=== PATIENT | male | born 1935 | race Caucasian/White ===

== ENCOUNTER → 2019-10-28 | Outpatient (CLI) | payer MEDICARE | LOC: RAD 08:08 | DX: N18.3 Chronic kidney disease, stage 3 (moderate) (principal) ==

== ENCOUNTER 2023-12-20 17:21 | Emergency (ER) | payer MEDICARE ==
[~2023-12-20] VITALS: Ht 180.3 cm; Wt 75.0 kg
[2023-12-20 18:43] LABS: BASO # 0.02 K/mm3 (0.02-0.10); EOS % 6.7 % (0.0-4.0); HEMATOCRIT 38.2 % (42.0-52.0); LYMPH# 2.47 K/mm3 (1.50-4.00); MEAN CELL VOLUME 100 fl (78-100); MEAN CORPUSCULAR HEMOGLOBIN 34 pg (27-31); MEAN CORPUSCULAR HGB CONC 34 g/dL (33-37); MONO # 0.57 K/mm3 (0.20-0.80); NEU # 2.46 K/mm3 (1.40-6.50); PLATELET COUNT 182 K/mm3 (130-400); RED BLOOD COUNT 3.82 M/mm3 (4.20-5.60); RED CELL DISTRIBUTION WIDTH 12.5 % (11.5-14.5); WHITE BLOOD COUNT 5.9 K/mm3 (4.8-10.8)
[2023-12-20 18:52] LABS: ALBUMIN 4.2 g/dL (3.4-4.8); CALCIUM 10.2 mg/dL (8.3-10.5)
[2023-12-20 18:53] LABS: TOTAL PROTEIN 6.8 g/dL (6.2-8.1)
[2023-12-20 18:57] LABS: TOTAL BILIRUBIN 0.5 mg/dL (0.2-1.2)
[2023-12-20] MEDS ORDERED: AMLODIPINE BES2.5 MG PO (19:55)
[2023-12-20] MEDS ORDERED: ALOGLIPTIN6.25 MG PO (19:55)
[2023-12-20] MEDS ORDERED: LOPID600 M1 PO (19:56)
[2023-12-20] MEDS ORDERED: TRICOR48 MG PO (19:56)
[2023-12-20] MEDS ORDERED: GLIMEPIRIDE2 M1 PO (19:57)
[2023-12-20] MEDS ORDERED: LEVOTHYROXINE25 MCG PO (19:59)
[2023-12-20] MEDS ORDERED: LISINOPRIL40 MG PO (19:59)
[2023-12-20] MEDS ORDERED: MULTI-VITAMIN1 EACH PO (20:00)
[2023-12-20] MEDS ORDERED: LORADAMED10 MG PO (20:00)
[2023-12-20] MEDS ORDERED: HYTRIN 1MG C1 MG/CAP PO (20:01)
[2023-12-20] MEDS ORDERED: Furosemide 40 MG/4 ML VIAL IV ONE (20:15)
[2023-12-20] MEDS ORDERED: Furosemide 20 MG TAB PO ONE (20:15)
[2023-12-20] MEDS ORDERED: LASIX40 M1 PO (20:19)
[2023-12-20 22:31] LABS: CALCIUM 10.4 mg/dL (8.3-10.5)
[2023-12-20 22:48] VITALS: BP 148/80
== END 2023-12-20 22:49 | disposition home or self-care (01) ==
LOC: ED 17:21
PROVIDERS: Physician Assistant
DX: E87.5 Hyperkalemia (principal)
CPT/HCPCS: J1940